=== PATIENT | female | born 1975 | race Caucasian/White ===

== ENCOUNTER 2019-07-06 08:42 | Emergency (ER) | payer BC ==
[2019-07-06 08:58] VITALS: BP 144/91
--- NOTE | 2019-07-06 09:19 | UC ---
Skin Complaint HPI - HPI Summary HPI Summary: The patient is a 44-year-old female that about 1-2 weeks ago developed URI symptoms. In tandem with that she also developed chapped lips. She had been applying an [id number] preparation with menthol. Her lips of been painful and have had some fissures. This morning she had a honey colored crust over portions of her lips. She has had no fever or chills. She denies any intraoral lesions. - History of Current Complaint Chief Complaint: UCGeneralIllness Time Seen by Provider: 07/06/19 08:56 Stated Complaint: LIP SWELLING Hx Obtained From: Patient Onset/Duration: Gradual Onset, Lasting Days Timing: Constant Onset Severity: Mild Current Severity: Mild Pain Intensity: 3 Pain Scale Used: 0-10 Numeric Location: Discrete - lips Character: Swelling, Painful Aggravating Factor(s): OTC Meds - aquaphor Alleviating Factor(s): Nothing Associated Signs & Symptoms: Positive: Drainage - crusty, Tenderness - Allergy/Home Medications Allergies/Adverse Reactions: Allergies Allergy/AdvReac Type Severity Reaction Status Date / Time No Known Allergies Allergy Verified 01/02/17 14:38 Home Medications: Home Medications Albuterol HFA INHALER* [Ventolin HFA Inhaler*] 2 puff INH Q4H PRN 07/06/19 [ History Confirmed 07/06/19] Fluticasone HFA 110 mcg(NF) [Flovent HFA 110 mcg(NF)] 1 puff PO DAILY WITH MEAL 07/06/19 [History Confirmed 07/06/19] Loratadine [Claritin] 10 mg PO DAILY WITH MEAL 07/06/19 [History Confirmed 07/06] Mupirocin 2% OINT* [Bactroban 2 % Oint*] 1 applic TOPICAL TID #1 tube 07/06/19 [ Rx] PMH/Surg Hx/FS Hx/Imm Hx Previously Healthy: Yes - Surgical History Surgical History: Yes Surgery Procedure, Year, and Place: LEFT HAND INDEX FINGER REPAIRED NERVE - Family History Known Family History: Positive: Hypertension, Diabetes, Other - pancreatic Ca father and uncle - Social History Alcohol Use: Daily Substance Use Type: None Smoking Status (MU): Never Smoked Tobacco Review of Systems All Other Systems Reviewed And Are Negative: Yes Constitutional: Positive: Negative Skin: Positive: Other - see hpi Eyes: Positive: Negative ENT: Positive: Negative Respiratory: Positive: Negative Cardiovascular: Positive: Negative Gastrointestinal: Positive: Negative Genitourinary: Positive: Negative Motor: Positive: Negative Neurovascular: Positive: Negative Musculoskeletal: Positive: Negative Neurological/Mental Status: Positive: Negative Psychological: Positive: Negative Physical Exam Triage Information Reviewed: Yes Appearance: Well-Appearing, No Pain Distress, Well-Nourished Vital Signs: Initial Vital Signs Temp 98.6 F 07/06/19 08:53 Pulse 77 07/06/19 08:53 Resp 18 07/06/19 08:53 BP 144/91 07/06/19 08:53 Pulse Ox 100 07/06/19 08:53 Vital Signs Reviewed: Yes Eyes: Positive: Conjunctiva Clear ENT: Positive: Hearing grossly normal, Uvula midline. Negative: Nasal congestion, Nasal drainage, Tonsillar swelling, Tonsillar exudate, Trismus, Muffled voice, Hoarse voice, Sinus tenderness Dental Exam: Normal Neck: Positive: Supple, Nontender, No Lymphadenopathy Respiratory: Positive: Lungs clear, Normal breath sounds, No respiratory distress, No accessory muscle use Cardiovascular: Positive: RRR, No Murmur Neurological: Positive: Alert Psychological Exam: Normal Skin Exam: Other - chipped swollen and chapped- raised areas surrounding lips with crust Skin: Positive: Rashes Course/Dx - Diagnoses Provider Diagnosis: Chapped lips Discharge ED - Sign-Out/Discharge Documenting (check all that apply): Patient Departure All imaging exams completed and their final reports reviewed: No Studies - Discharge Plan Condition: Stable Disposition: HOME Prescriptions: Mupirocin 2% OINT* [Bactroban 2 % Oint*] 1 applic TOPICAL TID #1 tube Patient Education Materials: Impetigo (DC) Referrals: Maria R Vee MD [Primary Care Provider] - (recheck mid week if not improving ) Additional Instructions: keep hydrated aquaphor lip repair in case you have developed a secondary impetigo I suggest you use bactroban as directed to the affected skin - Billing Disposition and Condition Condition: STABLE Disposition: Home
== END 2019-07-06 09:30 | disposition home or self-care (01) ==
LOC: UCEAST 08:42
DX: K13.0 Diseases of lips (principal)
CPT/HCPCS: 99212; G0463